=== PATIENT | female | born 1980 | race Two or more races ===

== ENCOUNTER 2021-09-01 07:43 | Emergency (ER) | payer OTHER, SELFPAY ==
--- NOTE | ~2021-09-01 | CT_ITS ---
EXAMINATION: CT ABDOMEN AND PELVIS WITHOUT CONTRAST CLINICAL INFORMATION: Right flank pain, diaphoresis. COMPARISON: None TECHNIQUE: Multidetector volumetric imaging was performed from the superior aspect of the liver through the pubic symphysis. Sagittal and coronal reformatted images were obtained on the technologist's workstation. Lack of intravenous and oral contrast limits visceral evaluation. This CT examination was performed using dose optimization techniques as appropriate, variously including the following: *Automated exposure control *Adjustment of mA and/or kV according to patient size (this includes techniques or standardized protocols for targeted exams where dose is matched to indication/reason for exam; i.e. extremities or head) *Use of iterative reconstruction technique DLP: 1347 mGy-cm FINDINGS: LUNG BASES: The visualized lung bases are unremarkable. LIVER, GALLBLADDER, AND BILIARY TREE: Unremarkable. PANCREAS: Unremarkable. SPLEEN: Unremarkable. ADRENAL GLANDS: Unremarkable. KIDNEYS AND URETERS: Mild right hydroureteronephrosis caused by a 0.4 cm calculus at the right ureterovesical junction (image 36, series 7). Small intrarenal calculi bilaterally. An interpolar right calculus measures 0.3 cm. A lower pole left calculus measures 0.2 cm. No left hydroureteronephrosis. BLADDER: Unremarkable. GASTROINTESTINAL TRACT: The stomach, small bowel and appendix are unremarkable. The colon and rectum are unremarkable. ABDOMINAL WALL: No significant hernia is appreciated. LYMPH NODES: No lymphadenopathy. VASCULAR: Unremarkable. PELVIC VISCERA: Retroverted/retroflexed uterus. No adnexal abnormality. OSSEOUS STRUCTURES: Unremarkable. CT/CT abdomen pelvis wo con IMPRESSION: 1. Mild right hydronephrosis caused by a 0.4 cm calculus at the level the right ureterovesical junction. A small intrarenal calculi bilaterally as detailed above as well. 2. Retroverted/retroflexed uterus without other significant abnormality.
[2021-09-01 08:09] VITALS: BP 97/62; PULSE 89; RESP 22; TEMP 36.5; O2SAT 100; BMI 25.6
[2021-09-01] MEDS: Ondansetron ODT 4 MG TAB.RAPDIS TRANSLINGU (08:14)
--- NOTE | 2021-09-01 09:04 | ED.GENADULT ---
HPI - General Adult General Chief complaint: Abdominal Pain Stated complaint: Back pain/R flank pain Time Seen by Provider: 09/01/21 08:52 Source: patient Mode of arrival: ambulatory History of Present Illness HPI narrative: 41-year-old female with no significant past medical history presenting to the ED complaining of intermittent right flank pain x1 week which became constant and worsening since 06:00AM. Patient reports associated nausea, vomiting, and diaphoresis. denies fever, diarrhea, dysuria / hematuria, vaginal bleeding or discharge Onset (ago): day(s) Related Data Previous Rx's Medication Instructions Recorded ketorolac 10 mg tablet 10 mg PO TID PRN pain 5 days #15 09/01/21 tabs ondansetron 4 mg disintegrating 4 mg PO Q8H PRN nausea and 09/01/21 tablet vomiting #10 tabs tamsulosin 0.4 mg capsule (Flomax) 0.4 mg PO DAILY #14 caps 09/01/21 Allergies Allergy/AdvReac Type Severity Reaction Status Date / Time No Known Allergies Allergy Mild NOT Unverified 10/26/19 16:45 APPLICABLE Review of Systems Review of Systems: Constitutional: No Fever, + Chills, No Fatigue, No Malaise ENT/Mouth: No Hearing loss, No Ear Pain, No sore throat, No Rhinorrhea, No Swallowing Difficulty Eyes: No Eye Pain, No Swelling, No Redness Cardiovascular: No Chest Pain, No SOB, No Dyspnea on Exertion, No Orthopnea, No Edema, No Palpitations Respiratory: No Cough, No Sputum, No Dyspnea Gastrointestinal: + Nausea, + Vomiting, No Diarrhea, No Constipation, No Abdominal pain Genitourinary: No irregular bleeding, No Dysuria, No Urinary Frequency, No Hematuria, No Urinary Incontinence/retention, No Urgency, + Flank Pain, No Urinary Flow Changes, No Hesitancy Musculoskeletal: No joint pain, No Myalgias, No Joint Swelling Skin: No Skin Lesions, No rash Neuro: No Weakness, No Dizziness, No Headache Yes all other systems are reviewed and are negative Constitutional: Constitutional: Reports as per [facility] Past Medical History Attestation statement: The following information was validated with the patient. Social History Social History Advance Directives: Yes Advance Directives Information Provided: Yes Advance Directives on File: No Physical Exam ED Vital Signs: Vital Signs - 24 hr 09/01/21 08:09 09/01/21 10:21 Temperature 97.7 F 97.6 F Pulse Rate 89 61 Respiratory Rate 22 H 18 Blood Pressure 97/62 126/85 Pulse Oximetry 100 100 Oxygen Delivery Method Room Air Room Air BMI result Body Mass Index 25.6 Const Other: in pain General: cooperative, healthy appearing, no acute distress and diaphoretic Orientation/consciousness: patient oriented x3 Limitations: no limitations HENMT Head: Yes normal to inspection and Yes atraumatic Ears: hearing grossly normal bilaterally General nose exam: Normal external nose present Face and sinus: Yes normal facial exam Eyes General: appearance normal, both eyes and all related structures EOM: EOMs intact bilaterally Neck Neck: Yes normal visual inspection and Yes no meningeal signs Resp Effort & Inspection: normal respiratory effort and no respiratory distress Auscultation: clear to auscultation bilaterally Cardio Rate: regular rate Heart sounds: S1 normal heart sound present and S2 normal heart sound present GI Inspection: Yes normal to inspection Palpation (GI): Soft to palpation, nontender, no guarding and not rigid General: Yes CVA tenderness on the right Back/Spine/Pelvis Back: CVA tenderness Skin Rashes: no rashes Wounds: no wounds Neuro General: patient oriented x3, tone normal and no meningeal signs Gait exam (Neuro): Normal gait present Extrem General: Yes normal to inspection Course Course Course Narrative: -1043-- noted leukocytosis of 15.7 > likely reactive from pain/ emesis. Low suspicion for severe sepsis -UA not infected 1149--CT abdomen pelvis wo con IMPRESSION: ? 1. Mild right hydronephrosis caused by a 0.4 cm calculus at the level the right ureterovesical junction. A small intrarenal calculi bilaterally as detailed above as well. 2. Retroverted/retroflexed uterus without other significant abnormality. Results discussed with patient, on re-evaluation patient reports symptomatic improvement, asymptomatic present. Clinically appears improved. discussed worrisome signs and symptoms and strict return precautions, and needed follow-up with Urology. She verbalized understanding and feels safe for discharge home at this time Medical Decision Making MDM Narrative Medical decision making narrative: 41-year-old female with no significant past medical history presenting to the ED complaining of intermittent right flank pain x1 week which became constant and worsening since 06:00AM. Patient reports associated nausea, vomiting, and diaphoresis. On exam tachypneic, diaphoretic, appears in pain, in position lying on stretcher, abdomen soft/nontender, + right CVA tenderness. Concern for renal stone vs pyelo vs ? MSK pain. Lower concern for cholecystitis/ lithiasis, pancreatitis, appendicitis, diverticulitis, ovarian torsion at this time Plan: Labs, UA, CT AP, IVF, pain management Medical Records Medical records reviewed: Yes I reviewed the patient's medical records. Lab Data Lab results reviewed: Yes I reviewed the patient's lab results. Result diagrams: 09/01/21 09:55 09/01/21 09:55 Labs: Lab Results 09/01/21 09/01/21 09/01/21 Range/Units 09:55 09:55 09:56 WBC 15.7 H (4.8-10.8) X10*3/uL RBC 4.58 (4.20-5.50) X10*6/uL Hgb 13.5 (12.0-16.0) g/dl Hct 41.5 (37.0-47.0) % MCV 90.6 (80.0-98.0) fL MCH 29.5 (27.0-33.0) pg MCHC 32.5 (31.0-35.0) g/dl RDW 11.7 (11.0-16.0) % Plt Count 199 (160-400) X10*3/uL MPV 11.7 (9.4-12.3) fL Immature Gran % (Auto) 0.6 H (0.0-0.4) % Neut % (Auto) 87.5 H (45-73) % Lymph % (Auto) 7.8 L (20-40) % [place] % (Auto) 3.6 (2-11) % Eos % (Auto) 0.1 (0-4) % Baso % (Auto) 0.4 (0-2) % Lymph # (Auto) 1.2 (1.2-4.9) X10*3/uL [place] # (Auto) 0.6 (0.1-1.2) X10*3/uL Eos # (Auto) 0.0 (0.0-0.4) X10*3/uL Baso # (Auto) 0.1 (0.0-0.2) X10*3/uL Abs Immat Gran (auto) 0.09 H (0.00-0.03) X10*3/uL Absolute Neuts (auto) 13.8 H (2.0-8.3) x10*3/uL Absolute Nucleated RBC 0.000 (0.0-0.012) X10*3/uL Nucleated RBC % (auto) 0.0 (0.0-0.2) /100WBC Sodium 140 (135-145) mmol/L Potassium 3.8 (3.3-5.1) mmol/L Chloride 106 (96-108) mmol/L Carbon Dioxide 19 L (22-29) mmol/L Anion Gap 19 (12-20) BUN 16 (9-16) mg/dL Creatinine 0.95 (0.5-1.4) mg/dL Estim Creat Clear Calc 69.5 Estimated GFR > 60 Random Glucose 123 H (60-115) mg/dL Calcium 9.8 (8.4-10.2) mg/dL Magnesium 1.9 (1.6-2.6) mg/dL Total Bilirubin 0.3 (0.0-1.0) mg/dL Direct Bilirubin 0.2 (0.0-0.5) mg/dL AST 16 (5-31) U/L ALT 11 (0-31) U/L Alkaline Phosphatase 48 (39-117) U/L Total Protein 8.3 H (6.5-8.0) g/dL Albumin 5.1 H (3.5-5.0) g/dL Lipase 11 (8-78) U/L Urine Color Urine Appearance Urine pH (5.0-8.0) Ur Specific [place] (1.005-1.025) Urine Protein (NEG-TRACE) MG/DL Urine Glucose (UA) (NEG) MG/DL Urine Ketones (NEG) MG/DL Urine Blood (NEG) Urine Nitrite (NEG) Ur Leukocyte Esterase (NEG) Urine RBC (0) /HPF Urine WBC (0-4) /HPF Ur Squamous Epith Cells /LPF Urine Bacteria /LPF Urine Mucus /LPF Urine Test NEGATIVE (NEGATIVE) 09/01/21 Range/Units 09:56 WBC (4.8-10.8) X10*3/uL RBC (4.20-5.50) X10*6/uL Hgb (12.0-16.0) g/dl Hct (37.0-47.0) % MCV (80.0-98.0) fL MCH (27.0-33.0) pg MCHC (31.0-35.0) g/dl RDW (11.0-16.0) % Plt Count (160-400) X10*3/uL MPV (9.4-12.3) fL Immature Gran % (Auto) (0.0-0.4) % Neut % (Auto) (45-73) % Lymph % (Auto) (20-40) % [place] % (Auto) (2-11) % Eos % (Auto) (0-4) % Baso % (Auto) (0-2) % Lymph # (Auto) (1.2-4.9) X10*3/uL [place] # (Auto) (0.1-1.2) X10*3/uL Eos # (Auto) (0.0-0.4) X10*3/uL Baso # (Auto) (0.0-0.2) X10*3/uL Abs Immat Gran (auto) (0.00-0.03) X10*3/uL Absolute Neuts (auto) (2.0-8.3) x10*3/uL Absolute Nucleated RBC (0.0-0.012) X10*3/uL Nucleated RBC % (auto) (0.0-0.2) /100WBC Sodium (135-145) mmol/L Potassium (3.3-5.1) mmol/L Chloride (96-108) mmol/L Carbon Dioxide (22-29) mmol/L Anion Gap (12-20) BUN (9-16) mg/dL Creatinine (0.5-1.4) mg/dL Estim Creat Clear Calc Estimated GFR Random Glucose (60-115) mg/dL Calcium (8.4-10.2) mg/dL Magnesium (1.6-2.6) mg/dL Total Bilirubin (0.0-1.0) mg/dL Direct Bilirubin (0.0-0.5) mg/dL AST (5-31) U/L ALT (0-31) U/L Alkaline Phosphatase (39-117) U/L Total Protein (6.5-8.0) g/dL Albumin (3.5-5.0) g/dL Lipase (8-78) U/L Urine Color YELLOW Urine Appearance CLEAR Urine pH 6.0 (5.0-8.0) Ur Specific [place] >= 1.030 H (1.005-1.025) Urine Protein 1+ H (NEG-TRACE) MG/DL Urine Glucose (UA) NEG (NEG) MG/DL Urine Ketones >=80 (NEG) MG/DL Urine Blood NEG (NEG) Urine Nitrite NEG (NEG) Ur Leukocyte Esterase NEG (NEG) Urine RBC 1-4 (0) /HPF Urine WBC 1-4 (0-4) /HPF Ur Squamous Epith Cells 3+ /LPF Urine Bacteria 2+ /LPF Urine Mucus 1+ /LPF Urine Test (NEGATIVE) Discharge Plan Discharge Clinical Impression: Calculus of ureterovesical junction (UVJ) Patient Disposition: Home, Self-Care Instructions: How to Strain Your Urine (ED), Ureteral Stones (ED) Additional Instructions: you have a kidney stone on her right side, this should pass on its own. Increase fluid intake. Toradol as an anti-inflammatory/pain medication, take with food. Flomax will help dilate the ureter to the passage. Zofran is for nausea, take as needed. He should strain her urine and look for stone. You need to follow-up with Urology. If he develops persistent /worsening pain, nausea/ vomiting, inability to urinate,you are unable to eat or drink or fever please return to the ED immediately Prescriptions: New ketorolac 10 mg tablet 10 mg PO TID PRN (Reason: pain) 5 Days Qty: 15 0RF tamsulosin [Flomax] 0.4 mg capsule 0.4 mg PO DAILY Qty: 14 0RF ondansetron 4 mg tablet,disintegrating 4 mg PO Q8H PRN (Reason: nausea and vomiting) Qty: 10 0RF Referrals: Ayo Koehler MD [Physician] - Stand Alone Forms: Work/School Release
[2021-09-01 10:03] LABS: MANUAL DIFF FLAG NO
[2021-09-01 10:05] LABS: Basophils Absolute Auto 0.1 X10*3/uL (0.0-0.2); Basophils Percent Auto 0.4 % (0-2); Eosinophils Percent Auto 0.1 % (0-4); Hematocrit 41.5 % (37.0-47.0); Hemoglobin 13.5 g/dl (12.0-16.0); Imm Gran Abs Auto 0.09 X10*3/uL (0.00-0.03); Imm Gran Pct Auto 0.6 % (0.0-0.4); Lymphocytes Absolute Auto 1.2 X10*3/uL (1.2-4.9); Lymphocytes Percent Auto 7.8 % (20-40); Mean Corpuscular HGB Conc 32.5 g/dl (31.0-35.0); Mean Corpuscular Hemoglobin 29.5 pg (27.0-33.0); Mean Corpuscular Volume 90.6 fL (80.0-98.0); Mean Platelet Volume 11.7 fL (9.4-12.3); Monocytes Absolute Auto 0.6 X10*3/uL (0.1-1.2); Monocytes Percent Auto 3.6 % (2-11); Neutrophils Absolute Auto 13.8 x10*3/uL (2.0-8.3); Neutrophils Percent Auto 87.5 % (45-73); Platelet Count 199 X10*3/uL (160-400); Red Blood Count 4.58 X10*6/uL (4.20-5.50); Red Cell Distribution Width 11.7 % (11.0-16.0); White Blood Count 15.7 X10*3/uL (4.8-10.8)
[2021-09-01 10:10] LABS: Appearance Urine CLEAR; Color Urine YELLOW; Glucose Urine UA NEG (NEG); Leukocyte Esterase Urine NEG (NEG); Nitrite Urine NEG (NEG); Specific Gravity - Urine >= 1.030 (1.005-1.025); UACC Culture Trigger NO; Urine Blood NEG (NEG); Urine Ketones >=80 MG/DL (NEG); Urine Protein 1+ MG/DL (NEG-TRACE)
[2021-09-01] MEDS: 0.9 % Sodium Chloride 1,000 ML 999 ML IV (10:18)
[2021-09-01] MEDS: Ketorolac Tromethamine 15 MG/ML VIAL IVPUSH (10:18)
[2021-09-01 10:21] VITALS: BP 126/85; PULSE 61; RESP 18; TEMP 36.4; O2SAT 100
[2021-09-01 10:21] LABS: Alanine Aminotransferase 11 U/L (0-31); Albumin Level 5.1 g/dL (3.5-5.0); Alkaline Phosphatase 48 U/L (39-117); Anion Gap 19 (12-20); Aspartate Amino Transferase 16 U/L (5-31); Bilirubin Direct 0.2 mg/dL (0.0-0.5); Bilirubin Total 0.3 mg/dL (0.0-1.0); Blood Urea Nitrogen 16 mg/dL (9-16); Calcium 9.8 mg/dL (8.4-10.2); Carbon Dioxide 19 mmol/L (22-29); Chloride 106 mmol/L (96-108); Creatinine Clr Calc Pharmacy 69.5; Estimated Glomerular Filt Rate > 60; Glucose Random 123 mg/dL (60-115); Lipase 11 U/L (8-78); Magnesium 1.9 mg/dL (1.6-2.6); Potassium 3.8 mmol/L (3.3-5.1); Sodium 140 mmol/L (135-145); Total Protein 8.3 g/dL (6.5-8.0)
[2021-09-01 10:23] LABS: UPreg QC Valid YES; Urine Pregnancy NEGATIVE (NEGATIVE)
[2021-09-01 10:27] LABS: Mucus Urine 1+ /LPF
[2021-09-01 10:28] LABS: Squamous Epithelial Cell Urine 3+ /LPF
[2021-09-01 10:29] LABS: Bacteria Urine 2+ /LPF
== END 2021-09-01 12:43 | disposition home or self-care (01) ==
PROVIDERS: Physician Assistant; Emergency Provider Emergency Medicine
DX: N20.1 Calculus of ureter (principal); M54.50 Low back pain, unspecified; R10.9 Unspecified abdominal pain; Z79.899 Other long term (current) drug therapy
CPT/HCPCS: 36415; 74176; 80048; 80076; 81001; 81025; 83690; 83735; 85025; 96361; 96374; 99284; J1885

== ENCOUNTER 2021-09-19 14:50 | Outpatient (AMB) | payer OTHER, SELFPAY ==
--- NOTE | 2021-09-19 15:19 | A.OFFVIS_ITS ---
Intake Intake Visit Reasons: ER-Stones follow up Intake Note: Patient is present for er follow up pt states she feels a lot better no pain anymore Accompanied by: Self / Same As Patient Allergies No Known Allergies Allergy (Mild, Verified 09/19/21 15:20) NOT APPLICABLE HPI HPI Comments History of Present Illness Details Karina is a pleasant female. She is seen for the following urologic conditions - nephrolithiasis Recent ER visit Imaging showed stone small right distal ureter She states this has passed Recommend follow-up imaging Review of Systems Const Denies chills and Denies fever(s) Card Reports no additional complaints and Denies syncope Resp Denies cough GI Denies abdominal pain and Denies heartburn Reports as per HPI and Denies change in libido Neuro Denies syncope Psych Denies change in libido Endo Denies change in libido Physical Exam Const General: cooperative, healthy appearing, comfortable and no acute distress Orientation/consciousness: patient oriented x3 HEENT Face and sinus: Yes normal facial exam Mouth: moist mucous membranes Neck Neck: Yes normal visual inspection, Yes full ROM and Yes trachea midline Chest Chest palpation & inspection: normal inspection of the chest Resp Effort & Inspection: normal respiratory effort, able to speak in complete sentences and no respiratory distress GI Inspection: Yes normal to inspection Back/Spine/Pelvis Cervical Spine: normal cervical lordosis Thoracic/Lumbar Spine: thoracic and lumbar spine normal to inspection Skin General skin exam: no rashes or lesions noted Neuro General: patient oriented x3, gait normal, tone normal and moves all extremities Extrem General: Yes normal to inspection and Yes capillary refill normal Results AMB Urinalysis, Automated UA Leukoctes 0 Uli/uL Last Edit by CARMELITA Kruse on 09/19/21 15:31 UA Nitrite Negative Last Edit by CARMELITA Kruse on 09/19/21 15:31 UA Urobilinogen 0.2 mg/dL Last Edit by CARMELITA Kruse on 09/19/21 15:3 1 UA Protein 15 mg/dL Last Edit by CARMELITA Kruse on 09/19/21 15:31 UA pH 7.0 Last Edit by CARMELITA Kruse on 09/19/21 15:31 UA Blood 0 Góme[place]/uL Last Edit by CARMELITA Kruse on 09/19/21 15:31 UA Specific [place] 1.015 Last Edit by MIGUEL KruseA on 09/19/21 15: 31 UA Ketone Positive Last Edit by MIGUEL KruseA on 09/19/21 15:31 UA Bilirubin 0 mg/dL Last Edit by Shelby Vance RMA on 09/19/21 15:31 UA Glucose 0 mg/dL Last Edit by MIGUEL KruseA on 09/19/21 15:31 Results Reviewed Results Reviewed: Laboratory Last Values Urine pH (Auto) 7.0 09/19/21 15:20 Specific [place] (Auto) 1.015 09/19/21 15:20 Urine Protein (Auto) 15 mg/dL 09/19/21 15:20 Glucose (UA)(Auto) 0 mg/dL 09/19/21 15:20 Urine Ketones (Auto) Positive 09/19/21 15:20 Urine Blood (Auto) 0 [place]/uL 09/19/21 15:20 Urine Nitrite (Auto) Negative 09/19/21 15:20 Urine Bilirubin (Auto) 0 mg/dL 09/19/21 15:20 Urine Urobilinogen (Auto) 0.2 mg/dL 09/19/21 15:20 Leukocyte Esterase (Auto) 0 Uli/uL 09/19/21 15:20 Assessment & Plan Assessment & Plan (1) Nephrolithiasis: Code(s): N20.0 - Calculus of kidney Plan Six-month follow-up imaging Orders: Orders US renal BI 2 Weeks N20.0 - Calculus of kidney AMB Urinalysis Automated 09/19/21 Z13.9 - Encounter for screening, unspecified Patient Instructions: Imaging studies, laboratory and physical exam results were discussed and reviewed in detail. No major barriers to patient understanding were identified. An opportunity to ask questions regarding the treatment plan was provided. All questions were answered. The patient expressed understanding and agreement with the above treatment plan. The patient is aware they should contact our office by phone for worsening of their current condition or the appearance of new urologic symptoms. Compliance is encouraged with any medications and followup testing that is ordered. It is a privilege to participate in the urologic care of your patient. If you have any questions or concerns regarding treatment for the above conditions, or other urologic issues, please do not hesitate to contact me. The office telephone contact is [phone]. This note is constructed using voice recognition software. While every effort has been made to ensure accuracy conference services coordinator errors may have been included. Yours sincerely, Dr Ayo Koehler MD, [facility] - Urology Providers of Expert, Compassionate Care for the Genitourinary System Coding Level of Care Code New Pt Level 3 (37072) Diagnoses Nephrolithiasis N20.0
== END 2021-09-19 16:09 | disposition home or self-care (01) ==
LOC: HO.HUSH 14:50
PROVIDERS: Visit Provider Urology
DX: N20.0 Calculus of kidney (principal)
CPT/HCPCS: 99499

== ENCOUNTER 2023-04-21 17:37 | Emergency (ER) | payer OTHER, SELFPAY ==
--- NOTE | ~2023-04-21 | XR_ITS ---
EXAMINATION: XR FOOT, RIGHT CLINICAL INFORMATION: Injury COMPARISON: None available. TECHNIQUE: AP, lateral, and oblique views of the right foot. FINDINGS: There is a minimally displaced fracture through the tip of the distal phalanges of the first digit with mild associated soft tissue swelling. The bones and soft tissues are otherwise unremarkable. No additional fractures. Alignment is anatomic. Joint spaces are maintained. XR/XR foot RT min 3V IMPRESSION: Minimally displaced fracture through the tip of the distal phalanges of the first digit.
[2023-04-21 18:05] VITALS: BP 100/64; PULSE 69; RESP 16; TEMP 36.9; BMI 24.8
--- NOTE | 2023-04-21 18:07 | ED.EXTPRO ---
HPI - Extremity Problem General Chief complaint: Extremity Injury, Lower Stated complaint: r big toe inj Time Seen by Provider: 04/21/23 20:26 Source: patient Mode of arrival: wheelchair Limitations: no limitations History of Present Illness HPI Narrative: Patient is a 43 year old assigned female at with a history of kidney stones presenting to the emergency department today with right great toe pain. Patient states that 4 days ago, she was moving, and accidentally dropped a bookshelf on her right great toe. Patient states that it has hurt ever since. Patient denies any head strike, loss of consciousness, dizziness, lightheadedness, abdominal pain, nausea, vomiting, fever, chills, blurry vision, double vision, loss of vision, chest pain, difficulty breathing, shortness of breath, back pain, night sweats, pain with urination, increased urinary frequency, increased urinary urgency, blood in her urine or stool, syncope or a near syncopal episode, bowel incontinence, bladder incontinence, bowel retention, bladder retention, or any other complaints at this time. Onset (ago): day(s) (4) Pain Consistency: intermittent Location: right (great toe) Severity scale (1-10): 4 Quality: aching Radiation: none Relieving factors: immobilization Exacerbating factors: weight bearing and walking Associated symptoms: denies other symptoms Related Data Previous Rx's Medication Instructions Recorded ketorolac 10 mg tablet 10 mg PO TID PRN pain 5 days #15 09/01/21 tabs ondansetron 4 mg disintegrating 4 mg PO Q8H PRN nausea and 09/01/21 tablet vomiting #10 tabs prednisone 20 mg tablet 20 mg PO DAILY 5 days #5 tabs 09/01/21 tamsulosin 0.4 mg capsule (Flomax) 0.4 mg PO DAILY #14 caps 09/01/21 amoxicillin 875 mg-potassium 1 tab PO BID 10 days #20 tabs 04/21/23 clavulanate 125 mg tablet Allergies Allergy/AdvReac Type Severity Reaction Status Date / Time No Known Allergies Allergy Mild NOT Verified 09/19/21 15:20 APPLICABLE Review of Systems Constitutional: Constitutional: Reports no additional constitutional complaints, Denies chills, Denies fever(s) and Denies night sweats Eyes: Eyes: Reports no additional eye complaints, Denies blurry vision, Denies change in vision, Denies diplopia, Denies eye discharge, Denies loss of vision and Denies eye pain ENT: Denies dizziness Cardiovascular: Cardiovascular: Reports no additional cardiovascular complaints, Denies chest pain, Denies lightheadedness, Denies Loss of Consciousness and Denies dyspnea Respiratory: Respiratory: Reports no additional respiratory complaints and Denies dyspnea Gastrointestinal: Gastrointestinal: Reports no additional gastrointestinal complaints, Denies abdominal pain, Denies melena, Denies hematochezia, Denies change in bowel habits and Denies change in stool character Genitourinary: Genitourinary: Denies hematuria, Denies urinary frequency, Denies dysuria, Denies urinary incontinence, Denies urinary hesitancy and Denies urinary urgency Musculoskeletal: Musculoskeletal: Reports no additional musculoskeletal complaints, Denies numbness and Denies tingling Comments: right great toe pain Neurologic: Denies dizziness, Denies loss of vision, Denies numbness and Denies tingling Psychiatric: Psychiatric: Reports no additional psychiatric complaints Endocrine: Endocrine: Reports no additional endocrine complaints Hematologic/Lymphatic: Hematologic/Lymphatic: Reports no additional hematologic/lymphatic complaints Allergic/Immunologic: Allergic/Immunologic: Reports no additional allergic/immunologic complaints [facility] Past Medical History Attestation statement: The following information was validated with the patient. Source: old records reviewed and nursing notes reviewed Social History Social History Smoked in Last 30 Days: No Use of substances other than those prescribed or required for medical reasons: No Advance Directives: No Advance Directives Information Provided: No Patient : No Physical Exam Vital Signs: Vital Signs: Last Vital Signs Temp 97.5 F 04/21/23 20:13 Pulse 62 04/21/23 20:13 Resp 14 04/21/23 20:13 BP 110/69 04/21/23 20:13 Pulse Ox 98 04/21/23 20:13 O2 Del Method Room Air 04/21/23 20:13 BMI result Body Mass Index 24.8 Const: General: cooperative, no acute distress, alert and awake Nutritional Appearance: well nourished Orientation/consciousness: patient oriented x3 Limitations: no limitations HEENT: Head: Yes normal to inspection and Yes atraumatic Ears: hearing grossly normal bilaterally and external ears normal General nose exam: Normal external nose present, no nasal discharge noted and no epistaxis Face and sinus: Yes normal facial exam, No abrasion and No laceration Mouth: Normal oral and palatal mucosa present, no drooling and no muffled voice Eyes: General: appearance normal, both eyes and all related structures Periorbital: periorbital findings normal Eyelids: Yes eyelids normal Conjunctivae: conjunctivae normal Pupils: Equal, round and reactive pupils present EOM: EOMs intact bilaterally Neck: Neck: Yes normal visual inspection, Yes full ROM and Yes no lymphadenopathy Chest: Chest palpation & inspection: normal inspection of the chest Resp: Effort & Inspection: normal respiratory effort and able to speak in complete sentences GI: Inspection: Yes normal to inspection Neuro: General: patient oriented x3 and moves all extremities Cranial nerves: Yes Equal, round and reactive pupils present Cognition (Neuro): normal cognition Motor exam (neuro): 5/5 motor strength present throughout Sensory Exam: Normal double simultaneous stimulation for sensation Coordination: [id number] test normal Extrem: Other: patient's right great toe nail firmly attached to nail bed with small abrasion to the base of the nail General: Yes full ROM and Yes capillary refill normal Psych: Appearance: grossly normal Mental Status: mental status grossly normal Affect: normal affect Attitude: cooperative Thought process: Normal thought process present Thought content: Normal thought content present Insight: Good insight present (Psych) Course Course Course Narrative: Complains of injury to right big toe and foot after bookcase fell on it X-ray ordered This is rapid medical exam and triage pending full evaluation in ER Medications Administered Discontinued Medications Generic Name Dose Route Start Last Admin Trade Name Freq PRN Reason Stop Dose Admin Amoxicillin/Clavulanate Potassium 875 mg 04/21/23 20:39 04/21/23 21:10 Amoxicillin/Potassium Clav 875 Mg Tablet PO 04/21/23 20:40 875 mg ONCE ONE Administration Diphtheria/Tetanus/Acell Pertussis 0.5 ml 04/21/23 20:39 04/21/23 21:10 Diphth,Pertus(Acell),Tet Adult 0.5 Ml Syringe IM 04/21/23 20:40 0.5 ml .ONCE ONE Administration Ketorolac Tromethamine 15 mg 04/21/23 20:39 04/21/23 21:11 Ketorolac Tromethamine 15 Mg/Ml Vial IM 04/21/23 20:40 15 mg ONCE ONE Administration Medical Decision Making Medical Decision Making MDM Narrative: Patient is a 43 year old assigned female at with a history of kidney stones presenting to the emergency department today with right great toe pain. Patient's physical exam was as noted in the physical exam portion of this note. Patient's right foot x-ray showed a fracture of the first toe. I explained my physical exam findings as well as all test results to the patient. I answered all questions asked by the patient. Given the abrasion at the base of the nail, will cover with augmentin. Patient's right foot was placed in a walking boot, without incident. Patient's PMS was intact prior to and after boot placement. I stressed the importance of the patient taking her medication as prescribed. I stressed the importance of the patient following up with her primary care provider and an documentation specialist. I stressed the importance of the patient returning to the emergency department immediately if her symptoms were to worsen or if she were to develop any dizziness, shortness of breath, difficulty breathing, chest pain, blurry vision, loss of vision, nausea, vomiting, abdominal pain, fever, chills, back pain, or any other complaints. Patient verbalized agreement and understanding with this treatment plan and discharge. Differential Diagnosis Differential Diagnoses: The differential diagnosis associated with the presentation includes Toe fracture Toe pain Toe abrasion Toe contusion Admission/Observation Consideration of admission/observation: Escalation of care including admission/observation considered Patient would have been admitted to the hospital had her work up had any findings where hospital admission was appropriate and her clinical presentation warranted hospital admission. Independent Interpretation I performed an independent interpretation of an: Plain X-Ray Interpretation: My interpretation is in agreement with the radiologist's impression of this imaging study. EXAMINATION: XR FOOT, RIGHT CLINICAL INFORMATION: Injury COMPARISON: None available. TECHNIQUE: AP, lateral, and oblique views of the right foot. FINDINGS: There is a minimally displaced fracture through the tip of the distal phalanges of the first digit with mild associated soft tissue swelling. The bones and soft tissues are otherwise unremarkable. No additional fractures. Alignment is anatomic. Joint spaces are maintained. XR/XR foot RT min 3V IMPRESSION: Minimally displaced fracture through the tip of the distal phalanges of the first digit. Dictated By: Wes Mataomros MD Signed By: Electronically signed by Wes Matamoros MD 04/21/23 6937 Radiology Impression Discussion of test interpretation with radiology: I have reviewed the radiologist's reading. Procedures Orthopedic Splinting/Casting Injury #1: Side: right Lower Extremity Injury Location: toe Lower Extremity Immobilizer: boot orthosis Discharge Plan Discharge Clinical Impression: Fracture of toe Patient Disposition: Home, Self-Care Instructions: Toe Fracture (ED), Walking Boot (ED) Additional Instructions: Do NOT soak the affected area. Wear the boot whenever ambulatory. Follow up with your primary care provider and an orthopedic provider. Return to the emergency department immediately if your symptoms worsen or if you develop any dizziness, shortness of breath, difficulty breathing, chest pain, blurry vision, loss of vision, nausea, vomiting, abdominal pain, fever, chills, back pain, or any other complaints. Prescriptions: New amoxicillin-pot clavulanate 875-125 mg tablet 1 tab PO BID 10 Days Qty: 20 0RF No Action prednisone 20 mg tablet 20 mg PO DAILY 5 Days Qty: 5 0RF ketorolac 10 mg tablet 10 mg PO TID PRN (Reason: pain) 5 Days Qty: 15 0RF tamsulosin [Flomax] 0.4 mg capsule 0.4 mg PO DAILY Qty: 14 0RF ondansetron 4 mg tablet,disintegrating 4 mg PO Q8H PRN (Reason: nausea and vomiting) Qty: 10 0RF Referrals: [facility] [place] Family [facility] [Provider Group] (Call to establish and follow up with a primary care provider. If you already have a primary care provider, please follow up with them.) [facility] [place] [facility] [Provider Group] (Call to establish and follow up with a primary care provider. If you already have a primary care provider, please follow up with them.) [facility] [place] [facility] [Provider Group] (Call to establish and follow up with a primary care provider. If you already have a primary care provider, please follow up with them.) [facility] [place] [facility] [Provider Group] (Call to establish and follow up with an orthopedic provider.) Interventions: ED Discharge Assessment Last Done: 04/21/23 21:20 Discharge Date/Time: 04/21/23 21:22 Print Language: Iraqi
[2023-04-21 20:13] VITALS: BP 110/69; PULSE 62; RESP 14; TEMP 36.4; O2SAT 98
[2023-04-21] MEDS: Diphth,Pertus(ACell),Tet Adult 0.5 ML SYRINGE IM (21:10)
[2023-04-21] MEDS: Amoxicillin/Potassium Clav 875 MG TABLET PO (21:10)
[2023-04-21] MEDS: Ketorolac Tromethamine 15 MG/ML VIAL IM (21:11)
== END 2023-04-21 21:22 | disposition home or self-care (01) ==
PROVIDERS: Emergency Provider Emergency Medicine
DX: S92.401A Displaced unspecified fracture of right great toe, initial encounter for closed fracture (principal); S90.411A Abrasion, right great toe, initial encounter; Y29.XXXA Contact with blunt object, undetermined intent, initial encounter; Y93.9 Activity, unspecified; Y92.9 Unspecified place or not applicable; Y99.8 Other external cause status; Z23 Encounter for immunization
CPT/HCPCS: 29515; 73630; 90471; 90715; 96372; 99284; J1885